=== PATIENT | male | born 1940 | race Caucasian/White ===

== ENCOUNTER 2017-07-01 08:58 | Day surgery (SDC) | payer MEDICARE ==
--- NOTE | 2017-07-01 08:39 | HP ---
DATE OF SURGERY: 07/01/2017 HISTORY OF PRESENT ILLNESS: The patient is a 77 year-old has some nonhealing lesions in the left shoulder area in need of excision, possible flap or skin graft. PAST MEDICAL HISTORY: Hernia repair in the past. Assisted right colectomy with re-anastomosis in the past. Hypertension in the past. Leg cramps. Hypertension. He has history of some basal cell removed in the past. MEDICATIONS: Aspirin. ALLERGIES: NKDA. FAMILY HISTORY: Negative in regards to this problem. SOCIAL HISTORY: No smoking or alcohol abuse. REVIEW OF SYSTEMS: Twelve systems reviewed. No chest pain or palpitations other systems negative or noncontributory as above and per preadmission questionnaire. PHYSICAL EXAMINATION: GENERAL: No acute distress. HEENT: Sclerae nonicteric. BACK: Left shoulder he had nonhealing lesion needs excision whether basal or squamous or other etiology is unclear. NECK: No JVD. CHEST: Equal excursion, nonlabored breathing. CVS: Regular rate and rhythm. ABDOMEN: Soft, nontender. EXTREMITIES: No edema. NEURO: Alert, moving extremities grossly symmetrically. IMPRESSION: Nonhealing left shoulder lesion needing excision possible flap, possible skin graft pending operative findings. Risks and benefits explained in detail including but not limited to bleeding or infection, risk of failure of the wound to heal or graft to take possibly requiring other procedures or healing by secondary intent, risk of wound infection or dehiscence possibly requiring healing by secondary intent or packing, general risk of anesthesia or sedation, risk of aches or pains, possibility of involved margins possibly requiring wide excision or other procedures down the road, general risk of anesthesia, deep venous thrombosis, pulmonary embolism, pneumonia but not limited to . He understands and agrees to the planned procedure and will proceed with left shoulder excision and biopsy of nonhealing lesion possible flap possible skin graft as an outpatient.
[~2017-07-01 08:58] MED LIST: Lactated Ringers 1,000 ML IV ONE; Lactated Ringers 1,000 ML IV SCH; MINERAL OIL LIGHT 10 ML FOR SURGERY ONE; Sensorcaine 0.25% 10 ML ONE
[2017-07-01] MEDS ORDERED: TORAdol 30 mg Injection IJ ONE (08:59)
[2017-07-01] MEDS ORDERED: ROBINUL IV ONE (08:59)
[2017-07-01] MEDS ORDERED: Quelicin Fliptop 200 MG/10 ML IJ ONE (08:59)
[2017-07-01] MEDS ORDERED: Decadron 4 MG INJ IV ONE (08:59)
[2017-07-01] MEDS ORDERED: Zofran 4 MG/2 ML VIAL IV ONE (08:59)
[2017-07-01] MEDS ORDERED: DIPRIVAN 200 MG/20 ML IV ONE (08:59)
[2017-07-01] MEDS ORDERED: SUBLIMAZE 100 MCG/2 ML IV ONE (08:59)
[2017-07-01] MEDS ORDERED: Lactated Ringers 1,000 ML IV ONE (09:23)
[2017-07-01 13:39] VITALS: BP 136/66; PULSE 58; O2SAT 92
--- NOTE | 2017-07-02 08:25 | OP ---
SURGERY DATE/TIME: 07/01/2017 1043 PREOPERATIVE DIAGNOSIS: Nonhealing left shoulder/upper extremity area lesion. POSTOPERATIVE DIAGNOSIS: Nonhealing left shoulder/upper extremity area lesion. PROCEDURE: Excisional biopsy of nonhealing left shoulder/upper extremity lesion (approximately 3.5 to 4 cm with margins with intermediate closure). SURGEON: Dr. Azael Wong. HOSPITAL AIDE: Dr. Mary Watkins. ANESTHESIA: General. ESTIMATED BLOOD LOSS: Minimal. INDICATIONS: As noted above. Risks and benefits explained in detail and not limited to and consent obtained. DESCRIPTION OF PROCEDURE AND FINDINGS: The patient is taken to the operating room. The area had been confirmed and marked with the patient in the preoperative holding area. The shoulder and upper extremity area prepped and draped in usual sterile fashion. After official time out and no disagreement with planned procedure, a spindle-shaped excision pattern around the area resulting in about 10.5 cm long incision pattern as this area was 3.5 to 4 cm specimen with margins. Dissection carried down to normal appearing subcutaneous tissue. Dissection off underlying fascia. The specimen is passed off for pathology. It was then closed in intermediate fashion with local advancement flaps undermining the flap on either side advancing back towards the midline with interrupted 3-0 and 2-0 Vicryl in an interrupted fashion in the deep superficial subcu. The skin closed with 3-0 Vicryl in running subcuticular fashion, interrupted 0 Prolene used to reinforce the area given the location in the shoulder and upper extremity area. Steri-Strips and sterile dressing applied. 0.25% Marcaine local injected along the skin incision. The patient tolerated the procedure well. Findings discussed with the family out in the waiting area. There were no immediate complications.
== END 2017-07-01 13:15 | disposition home or self-care (01) ==
LOC: SDC 08:58
PROVIDERS: ATTEND Surgery
PROC: 0HQCXZZ Repair Left Upper Arm Skin, External Approach (ICD-10-PCS; principal; 2017-07-01)
PROC: 0HBCXZZ Excision of Left Upper Arm Skin, External Approach (ICD-10-PCS; 2017-07-01)
DX: C44.519 Basal cell carcinoma of skin of other part of trunk (principal); M75.92 Shoulder lesion, unspecified, left shoulder
CPT/HCPCS: 00400; 36415; 88305; 93005; 99100; J0330; J1100; J1885; J2405; J2704; J3010; A9270-GY

== ENCOUNTER 2023-08-12 08:32 | Day surgery (SDC) | payer MEDICARE ==
[~2023-08-12 08:32] MED LIST changes: -MINERAL OIL LIGHT 10 ML FOR SURGERY ONE; -Sensorcaine 0.25% 10 ML ONE
--- NOTE | 2023-08-12 08:59 | HP ---
DATE OF SURGERY: 08/12/2023 HISTORY OF PRESENT ILLNESS: The patient is an 83-year-old with history of colon cancer. No anemia now. Bright stools at times. No change in bowel movements. No new pain. Family history negative for colon cancer. PAST MEDICAL HISTORY: Hypertension, chronic obstructive pulmonary disease, hyperlipidemia, enlarged prostate, history of colon cancer, history of anemia in the past. PAST SURGICAL HISTORY: Back surgery. Skin cancer excision. Hernia repair in the past. Colon resection in the past. Colonoscopy in the past. MEDICATIONS: Amlodipine, donepezil, Breztri Aerosphere Inhaler, aspirin, Flomax. ALLERGIES: NKDA. FAMILY HISTORY: Negative for colon cancer. SOCIAL HISTORY: Former smoker. No alcohol abuse. REVIEW OF SYSTEMS: Fourteen systems reviewed. No chest pain or palpitations. Other systems negative or noncontributory as above and per preadmission questionnaire. PHYSICAL EXAMINATION: Height 5'7". BMI 39. GENERAL: No acute distress. HEENT: Sclerae nonicteric. EOMI. Oral mucous membranes moist. NECK: No JVD. CHEST: Equal excursion, nonlabored breathing. CVS: Regular rate and rhythm. ABDOMEN: Soft. No peritoneal signs. EXTREMITIES: No significant edema. NEURO: Alert, oriented, moving extremities symmetrically. RECTAL: Deferred timed to endoscopy exam. PSYCH: Appropriate mood and affect. SKIN: Dry. IMPRESSION: Anemia. He is in need of upper and lower endoscopy for further evaluation. He was shown the risk sheet explained the procedure in detail including but not limited to bleeding or infection, risk of bowel injury or perforation, risk of missed or nondiagnosis or incomplete exam possibly requiring barium enema, barium swallow, other studies, referrals or procedures. Risk of anesthesia or sedation, risk of bowel prep but not limited to, consent obtained. Will proceed with EGD and colonoscopy under MAC anesthesia as an outpatient. Otherwise continue medications for chronic obstructive pulmonary disease, hypertension, lipids and benign prostatic hypertrophy.
[2023-08-12 09:16] VITALS: RESP 18
[2023-08-12] MEDS ORDERED: Xylocaine-Mpf 2% 5 Ml Vial ONE (11:20)
[2023-08-12] MEDS ORDERED: DIPRIVAN 200 MG/20 ML IV ONE (11:20)
[2023-08-12 12:29] VITALS: TEMP 97.4
[2023-08-12 12:40] VITALS: BP 140/93; PULSE 77; O2SAT 95
--- NOTE | 2023-08-13 08:39 | OP ---
SURGERY DATE/TIME: 08/12/2023 1203 PREOPERATIVE DIAGNOSES: 1) Anemia. 2) Prior history of colon cancer with resection in the past. POSTOPERATIVE DIAGNOSES: 1) Erosive gastritis. 2) Mild distal esophageal erythema. 3) Colon polyps. 4) Diverticulosis. 5) Fair bowel prep. 6) ASA Class III. 7) Withdrawal time for colonoscopy nine minutes. PROCEDURES: 1) EGD with cold biopsy of antrum to evaluate for Helicobacter pylori. 2) Colonoscopy to cecum. 3) Hot snare polypectomy transverse colon polyp x2 ranging in size from 3 to 5 mm. 4) Hot biopsy piecemeal polypectomy of small polyp on the transverse colon side of the prior ileocolic anastomosis. 5) Hot biopsy piecemeal polypectomy rectosigmoid colon polyps x3. SURGEON: Dr. Azael Wong. LIVESTOCK COUNTER: Kathryn Goetz, Medical Student III. ANESTHESIA: MAC. ESTIMATED BLOOD LOSS: Minimal. INDICATIONS: As noted above. Risks and benefits explained in detail and not limited to and consent obtained. DESCRIPTION OF PROCEDURE AND FINDINGS: The patient is taken to the operating room. MAC anesthesia introduced. After official time out and no disagreement with planned procedure, bite block positioned. Video gastroscope easily passed down the esophagus. The gastroesophageal junction is about 45 cm. The scope is passed around to the junction of the second and third portion of the duodenum. There were no signs of any ulcers. The duodenum is grossly unremarkable. The scope is pulled back in the stomach. He did have some petechial hemorrhages and some erosive gastritis that is chronic in nature. No signs of anything large enough to call an ulcer but he did have multiple petechial hemorrhages and erosive gastritis. Cold biopsy is taken to evaluate for Helicobacter pylori. On retroflex the gastroesophageal junction snug against the scope. The scope pulled back to gastroesophageal junction. The gastroesophageal junction was about 45 cm. Z-line was crisp. There was scant erythema. No signs of any significant esophagitis. No signs of erosions or masses. Attention is then turned to colonoscopy. Digital rectal exam did not reveal any rectal masses. Video colonoscope inserted and passed up the tortuous sigmoid, descending, transverse, ascending colon around to the ileocolic anastomotic site. There were small couple of polyps on the transverse colon side removed with hot biopsy polypectomy in piecemeal fashion. There was no gross recurrence at the anastomotic site itself. The scope is carefully withdrawn. He did have pancolonic diverticulosis in the colon. There were two polyps ranging from 3 to 5 mm in the transverse colon removed with hot snare polypectomy with brief bursts of cautery. The staff said that these were retrieved. Actually there was a third one additionally was also retrieved with hot snare polypectomy. The scope pulled back to the rectosigmoid area. Three small polyps removed with hot biopsy polypectomy in piecemeal fashion. Good hemostasis noted. No signs of any large polyps, masses or obstructing lesions. Prep overall was fair with a little bit of liquidy, semisolid stool limiting the exam. The patient tolerated the procedure well. There were no immediate complications.
== END 2023-08-12 12:49 | disposition home or self-care (01) ==
LOC: SDC 08:32
PROVIDERS: ATTEND Surgery
DX: Z08 Encounter for follow-up examination after completed treatment for malignant neoplasm (principal); Z85.038 Personal history of other malignant neoplasm of large intestine; D64.9 Anemia, unspecified; Z90.49 Acquired absence of other specified parts of digestive tract; K29.70 Gastritis, unspecified, without bleeding; K22.89 Other specified disease of esophagus; K57.30 Diverticulosis of large intestine without perforation or abscess without bleeding; D12.3 Benign neoplasm of transverse colon
CPT/HCPCS: 99100; J2704

== ENCOUNTER 2024-10-28 22:32 | Emergency (ER) | payer MEDICARE, OTHER ==
[2024-10-28 22:57] VITALS: RESP 18; TEMP 97
--- NOTE | 2024-10-28 22:57 | ERPHSYRPT ---
- History of Present Illness Time Seen by Provider: 10/28/24 22:51 Source: patient, family Exam Limitations: no limitations Physician History: This is an 84-year-old obese white gentleman who was brought into the emergency department by private vehicle accompanied by his family secondary to the patient becoming dizzy while filling up humidifiers at his home and then falling hitting his head. He has a laceration on his scalp and upper forehead in the midline. He did not lose consciousness. He is not on any anticoagulation therapy. He does have a history of prostate issues, dementia and hypertension as well as leukemia. He has been unable to tolerate the medication to be treated Occurred: just prior to arrival Severity: mild Head Injury Location: frontal Method of Injury: fell Loss of Consciousness: no loss of consciousness Associated Symptoms: denies symptoms, other (Had dizziness), No shortness of breath, No chest pain Allergies/Adverse Reactions: No Known Drug Allergies Allergy (Verified 10/28/24 22:39) Home Medications: Amlodipine Besylate 5 mg [Norvasc 5 mg] 5 mg PO DAILY 03/26/16 [History] Aspirin 81 mg PO DAILY 07/01/17 [History] Tamsulosin HCl 0.4 mg [Flomax 0.4 MG] 0.4 mg PO DAILY 07/01/17 [History] Donepezil HCl [Aricept] 5 mg PO DAILY 08/05/23 [History] Hx Tetanus, Diphtheria Vaccination/Date Given: No Hx Influenza Vaccination/Date Given: Yes (2010) Hx Pneumococcal Vaccination/Date Given: Yes (2009) Travel Risk - International Travel Have you traveled outside of the country in past 3 weeks: No - Emerging Infectious Disease Are you exhibiting symptoms associated with any current EIDs: No - Review of Systems Constitutional: No Symptoms Eyes: No Symptoms Ears, Nose, & Throat: No Symptoms Respiratory: No Symptoms Cardiac: No Symptoms Abdominal/Gastrointestinal: No Symptoms Genitourinary Symptoms: No Symptoms Musculoskeletal: No Symptoms Skin: Other (Scalp lacerations) Neurological: No Symptoms Psychological: No Symptoms Endocrine: No Symptoms Hematologic/Lymphatic: No Symptoms Immunological/Allergic: No Symptoms All Other Systems: Reviewed and Negative - Past Medical History Pertinent Past Medical History: Yes Neurological History: No Pertinent History ENT History: No Pertinent History Cardiac History: High Cholesterol, Hypertension Respiratory History: Bronchitis, COPD, Emphysema Endocrine Medical History: No Pertinent History Musculoskeletal History: Other GI Medical History: Hernia History: No Pertinent History Psycho-Social History: No Pertinent History Male Reproductive Disorders: Prostate Problems Other Medical History: anemia , carpal tunnel - Past Surgical History Past Surgical History: Yes Neuro Surgical History: No Pertinent History Cardiac: No Pertinent History Respiratory: No Pertinent History Gastrointestinal: Colon Resection, Hernia Repair Genitourinary: No Pertinent History Musculoskeletal: Other Male Surgical History: Prostate Surgery Other Surgical History: TURP in 2012. Suzanna Cuevas. Lower back surgeries in the 70"s, - Social History Smoking Status: Former smoker Exposure to second hand smoke: No Drug Use: none Patient Lives Alone: No - Nursing Vital Signs Nursing Vital Signs: Initial Vital Signs Pulse Rate 70 10/28/24 22:37 Blood Pressure 160/67 10/28/24 22:37 O2 Sat by Pulse Oximetry 93 L 10/28/24 22:37 Pain Scale Pain Intensity 2 - Otto Coma Score Best Eye Response ([place]): (4) open spontaneously Best Verbal Response (Otto): (5) oriented Best Motor Response ([place]): (6) obeys commands Otto Total: 15 - Physical Exam General Appearance: no apparent distress, alert, anxiety Head Injury: lacerations (2 skin lacerations both are slightly curved and transversely oriented. The upper scalp laceration 2 cm and lower hairline skin laceration is approximately 3-1/2 cm.) ENT Exam: airway nml, nml ext.inspection Neck Exam: supple, trachea midline, full range of motion, normal alignment, normal inspection Cardiovascular/Respiratory Exam: chest non-tender, normal breath sounds, regular rate/rhythm, heart sounds normal, no ecchymosis, no respiratory distress Gastrointestinal/Abdominal Exam: soft, non tender, no distention, no mass, no guarding, no ecchymosis, no organomegaly, no pulsatile mass, normal bowel sounds Rectal Exam: not done Back Exam: normal inspection, normal range of motion, No CVA tenderness, No vertebral tenderness Extremity Exam: non-tender, normal range of motion, normal inspection Mental Status Exam: alert, oriented x 3, cooperative mining engineer Exam: normal hearing, normal speech, PERRL Coordination/Gait Exam: normal finger to nose, normal gait, normal cerebellar function Motor/Sensory Exam: no motor deficit, no sensory deficit Skin Exam: normal color, warm, dry Lymphatic Exam: No adenopathy SpO2 Interpretation: normal O2 Delivery: Room Air - Course Nursing assessment & vital signs reviewed: Yes EKG Interpreted by Me: RATE (72), A-fib, NORMAL AXIS, NORMAL INTERVALS, NORMAL QRS, Non-specific ST Changes, Other (No acute ischemia on today's twelve-lead EKG. QTc is 460) Ordered Tests: Active Orders 24 hr Category Date Time Status EKG-ER Only STAT Care 10/28/24 23:05 Active IV Insertion STAT Care 10/28/24 23:05 Active CERVICAL SPINE WO CONTRAST [CT] Stat Exams 10/28/24 23:06 Completed HEAD WITHOUT CONTRAST [CT] Stat Exams 10/28/24 23:05 Completed CBC W DIFF Stat Lab 10/28/24 23:22 Completed CMP Stat Lab 10/28/24 23:22 Completed MAGNESIUM Stat Lab 10/28/24 23:22 Completed Manual Differential NC Stat Lab 10/28/24 23:22 Completed TROPONIN Q4H Lab 10/28/24 23:22 Completed TROPONIN Q4H Lab 10/29/24 03:15 Ordered TROPONIN Q4H Lab 10/29/24 07:15 Ordered UA W/RFX UR CULTURE Stat Lab 10/28/24 23:05 Ordered Medication Summary Discontinued Medications Generic Name Dose Route Start Last Admin Trade Name Freq PRN Reason Stop Dose Admin Lidocaine HCl 10 ml 10/29/24 00:21 10/29/24 00:22 Lidocaine Hcl 1% 20 Ml Mdv 20 Ml Ml IJ 10/29/24 00:22 10 ml STAT ONE Administration Lidocaine HCl Confirm 10/29/24 00:21 Lidocaine Hcl 1% 20 Ml Mdv 20 Ml Ml Administered 10/29/24 00:22 Dose 10 ml .ROUTE .STK-MED ONE Lab/Rad Data: Laboratory Result Diagrams 10/28/24 23:22 10/28/24 23:22 Laboratory Results 10/28/24 10/28/24 10/28/24 Range/Units 23:22 23:22 23:22 WBC 7.6 (4.23-9.07) x10^3/uL RBC 3.21 L (4.63-6.08) x10^6/uL Hgb 9.4 L (13.7-17.5) g/dL Hct 31.1 L (40.1-51.0) % MCV 96.9 H (79.0-92.2) fL MCH 29.3 (25.7-32.2) pg MCHC 30.2 L (32.3-36.5) g/dL RDW 16.8 H (11.6-14.4) % Plt Count 99 L (163-337) x10^3/uL MPV 13.6 H (9.4-12.4) fL Segmented Neutrophils 24 L (34.0-67.9) % Band Neutrophils 5 H (0.0-2.0) % Lymphocytes (Manual) 20 L (21.8-53.1) % Monocytes (Manual) 29 H (5.3-12.2) % Eosinophils (Manual) 1 (0.8-7.0) % Metamyelocytes 11 % Myelocytes 9 % Promyelocytes 1 % Platelet Estimate DECREASED (NORMAL) RBC Morphology ABNORMAL Polychromasia 2+ Anisocytosis 2+ Sodium 142 (135-145) mmol/L Potassium 4.0 (3.5-5.1) mmol/L Chloride 105 (98-107) mmol/L Carbon Dioxide 31 H (22-30) mmol/L Anion Gap 9.4 (5-15) MEQ/L BUN 16 (9-20) mg/dL Creatinine 1.03 (0.66-1.25) mg/dL Estimated GFR 70.7 ML/MIN Glucose 119 H (74-106) mg/dL Calcium 9.6 (8.4-10.2) mg/dL Magnesium 2.0 (1.6-2.3) mg/dL Total Bilirubin 0.50 (0.2-1.3) mg/dL AST 39 (17-59) U/L ALT 19 (0-50) U/L Alkaline Phosphatase 78 (38-126) U/L Troponin I < 0.012 (0.000-0.033) ng/mL Serum Total Protein 7.5 (6.3-8.2) g/dL Albumin 4.0 (3.5-5.0) g/dL - Progress Progress: improved, re-examined Progress Note: 10/28/24 23:46 My medical decision making and the assignment of moderate complexity is based on review of the patient's past medical history, review the patient's medication list, reviewed patient drug allergy list, history present illness and physical findings on examination. The workup in this patient includes placement of intravenous line, CBC, CMP, twelve-lead EKG, troponin level, urinalysis, CT scan of the head and cervical spine both without contrast. Differential diagnosis includes but is not limited to anemia, intracranial abnormality, arrhythmia, myocardial infarction, cervical spine subluxation/acute fracture. 10/29/24 01:01 I interpreted the patient's laboratory data results, the patient does have evidence of anemia that appears to be chronic and not acute. Patient's troponin level is normal. Patient currently has no shortness of breath or chest pain. 10/29/24 01:[address] scan of the head and CT scan of the cervical spine, both without contrast, were interpreted by the radiologist and I reviewed the impression.: The CT scan of the head without contrast shows no acute intracranial abnormality. There is a right side frontal scalp hematoma. The bony structures are intact. There is evidence of cerebral atrophy. The CT scan of the cervical spine without contrast shows no acute fracture or subluxation in the cervical spine. There is cervical spondylosis present. Counseled pt/family regarding: lab results, diagnosis, need for follow-up, rad results Medical Desision Making - Independent Historian Additional History obtained from: Family - Diagnostic Testing Diagnostic test were ordered, analyzed, and reviewed by me: Yes Radiological Interpretation: Reviewed by me, Teleradiologist Report - Risk of complications Low Risk: Low risk of morbidity from additional dx testing or treatment - Departure Departure Disposition: Home Clinical Impression: Fall with injury, Laceration of scalp Condition: Stable Critical Care Time: No Referrals: NATALIE GOMEZ MD [Primary Care Provider] - Follow up/PCP as directed Additional Instructions: Keep the current pressure dressing in place for 24 hours. After 24 hours, may rinse the area off with soapy water. Blot dry use a hair spinning machine operator. After the area was dried, reapply antibiotic ointment of choice 1-2 times a day. Cover with n onstick bandage. Staple and suture removal in 10 days. Call your primary care provider later today, 10/29/2024 to make arrangements for follow-up appointment for further evaluation and management. May apply ice pack 3-4 times a day for the next 3 days to the skin laceration repair site. Do not apply the ice directly to the skin but cover with a cough before application.
[2024-10-28 23:26] LABS: Hematocrit 31.1 % (40.1-51.0); Hemoglobin 9.4 g/dL (13.7-17.5); Mean Cell Volume 96.9 fL (79.0-92.2); Mean Corpuscular Hemoglobin 29.3 pg (25.7-32.2); Mean Corpuscular Hgb Concent. 30.2 g/dL (32.3-36.5); Mean Platelet Volume 13.6 fL (9.4-12.4); Platelet Count 99 x10^3/uL (163-337); Red Blood Count 3.21 x10^6/uL (4.63-6.08); Red Cell Distribution Width 16.8 % (11.6-14.4); White Blood Count 7.6 x10^3/uL (4.23-9.07)
[2024-10-28 23:42] LABS: ANION GAP 9.4 MEQ/L (5-15); BILIRUBIN,TOTAL 0.5 mg/dL (0.2-1.3); Calcium 9.6 mg/dL (8.4-10.2); Creatinine 1 1.03 mg/dL (0.66-1.25); EST GLOMERULAR FILTRATION RATE 70.7 ML/MIN; Total Protein 7.5 g/dL (6.3-8.2)
[2024-10-29 00:03] VITALS: O2SAT 93
[2024-10-29 00:10] LABS: BAND 5 % (0.0-2.0); Eosinophil 1 % (0.8-7.0); Lymphocytes 20 % (21.8-53.1); Metamyelocyte 11 %; Monocyte 29 % (5.3-12.2); Myelocyte 9 %; Neutrophils 24 % (34.0-67.9); Promyelocyte 1 %; Total Cells Counted 100
[2024-10-29 00:13] LABS: ANISOCYTOSIS 2+; Polychromasia 2+
[2024-10-29 00:14] LABS: Platelet Estimate DECREASED (NORMAL)
[2024-10-29] MEDS ORDERED: XYLOCAINE 1% HCL 20 ML MDV ONE (00:21)
[2024-10-29] MEDS: XYLOCAINE 1% HCL 20 ML MDV IJ ONE (00:22)
--- NOTE | 2024-10-29 01:01 | XRAY ---
CLINICAL HISTORY: Fall after dizzy spell COMPARISON: None. TECHNIQUE: Multiple axial images are obtained from the skull base to the vertex without contrast. CT scan was performed according to ALARA (as low as reasonable achievable). FINDINGS: There is cerebral atrophy. No evidence of space occupying lesion, hemorrhage, edema, mass effect, midline shift, extra axial collection, or hydrocephalus is noted. Basal cisterns are symmetric and normal in size and configuration. There are scattered periventricular hypodensities as can be seen with chronic microvascular ischemic changes. The ayoub-white matter differentiation is preserved. Pansinusitis is noted. Visualized mastoid air cells are well aerated. Orbital contents are within normal limits. Bony structures are intact. IMPRESSION: 1. No evidence of acute intracranial abnormality is demonstrated. 2. Chronic microvascular ischemic changes. 3. Cerebral atrophy. 4. Scalp hematoma is noted involving right side of frontal region. Electronically Signed by: Milan Borden MD. (10/29/2024 00:57:08 EST)
--- NOTE | 2024-10-29 01:08 | XRAY ---
CLINICAL HISTORY: Follow-up to dizzy spell COMPARISON: None. TECHNIQUE: Computed tomography of the cervical spine performed without intravenous contrast. Contiguous axial images were obtained from the skull base to T2, with sagittal and coronal reformatted images reconstructed from the axial data. CT scan was performed according to ALARA (as low as reasonable achievable). FINDINGS: Loss of cervical lordosis - suggest possibility of muscle spasm/positional. Degenerative changes involving cervical spine in the form of multilevel marginal osteophytes, disc space reduction and facetal arthrosis. Cervical vertebral bodies are normal in height and alignment, with no evidence of fracture or subluxation. Lateral masses of C1 are symmetrical, and the dens is intact. Prevertebral soft tissues are not widened. The remaining suprahyoid and infrahyoid soft tissues in the neck are unremarkable. Posterior uncovertebral arthrosis is noted at C2-C3, C4-C5, C5-C6 levels which indenting ventral thecal sac and causes bilateral neuroforaminal narrowing. Thyroid gland appears unremarkable. Pansinusitis noted. IMPRESSION: 1.No acute fracture or subluxation in the cervical spine. 2.Cervical spondylosis. Electronically Signed by: Milan Borden MD. (10/29/2024 01:04:40 EST)
[2024-10-29 01:22] VITALS: BP 145/83; PULSE 65
== END 2024-10-29 01:26 | disposition home or self-care (01) ==
LOC: ED 22:32
DX: S01.01XA Laceration without foreign body of scalp, initial encounter (principal); W18.39XA Other fall on same level, initial encounter; R42 Dizziness and giddiness; I10 Essential (primary) hypertension; E78.5 Hyperlipidemia, unspecified; Z79.899 Other long term (current) drug therapy
CPT/HCPCS: 36415; 70450; 72125; 80053; 83735; 84484; 85025; 93005; 96372; 99284; 99285